=== PATIENT | male | born 1965 | race Caucasian/White ===

== ENCOUNTER → 2023-09-07 07:42 | Outpatient (REF) | payer OTHER, SELFPAY | LOC: DHCBC/DCA 07:42 | PROVIDERS: ATTENDING PHYSICIAN Internal Medicine Cardiovascular Disease; FAMILY PHYSICIAN Family Medicine | DX: R07.9 Chest pain, unspecified (principal); I25.10 Atherosclerotic heart disease of native coronary artery without angina pectoris | CPT/HCPCS: 78452; 93017; A9500 ==

== ENCOUNTER 2025-05-03 12:17 | Emergency (ER) | payer OTHER, SELFPAY ==
[2025-05-03 12:29] VITALS: BP 169/90
[2025-05-03 13:05] LABS: Hematocrit 44.0 % (39.0-52.0); Hemoglobin 14.6 g/dL (13.0-18.0); Mean Corp Hgb Conc. 33.2 g/dL (33.0-37.0); Mean Corpuscular Volume 93.8 fL (80.0-94.0); Nucleated Red Blood Cells % 0 % (-); Platelet Count 314 10^3/uL (130-400); Red Cell Dist. Width 14.2 % (11.5-14.5)
[2025-05-03 13:17] LABS: ALT (SGPT) 30 U/L (0-50); AST (SGOT) 23 U/L (17-59); Albumin 4.7 g/dl (3.5-5.0); Alkaline Phosphatase 58 U/L (38-126); Blood Urea Nitrogen 15 mg/dl (9-20); Calcium 9.7 mg/dl (8.4-10.2); Carbon Dioxide 27 mmol/L (22-30); Chloride 105 mmol/L (98-107); Glucose 125 mg/dl (70-99); Potassium 4.2 mmol/L (3.5-5.1); Sodium 138 mmol/L (135-145); Total Protein 8.1 g/dl (6.3-8.2); eGFR > 60.00
[2025-05-03 13:28] LABS: Troponin I 0.025 ng/ml
[2025-05-03 16:02] VITALS: BP 145/72
[2025-05-03 16:03] VITALS: BMI 38.0
[2025-05-03 16:45] LABS: Troponin I 0.025 ng/ml
[2025-05-03 17:18] VITALS: BP 153/85
--- NOTE | 2025-05-03 17:20 | EDRN ---
Patient updated on blood work and plan to be discharged home.
--- NOTE | 2025-05-03 17:23 | ED.GENMED ---
History of Present Illness
General
Chief Complaint: Chest Pain
Time Seen by Provider: 05/03/25 16:04
History of Present Illness
History of Present Illness:
59-year-old male with history of hypertension and CAD presenting to the emergency department for chest tightness. Patient reports symptoms for about 4 days. Pain has been intermittent. Denies exertional component. Does note that he is under a
lot of stress currently. Denies any radiation of pain. Patient follows with Dr. Elias from cardiology. He went to his primary care doctor today who recommended that he come to the hospital. Denies cough or difficulty breathing. Denies abdominal
pain or GI symptoms. Denies additional acute medical complaint
Past History
Past History
ED Past Medical History: Asthma, CAD, GERD, HTN, Hypercholesterolemia, NIDDM, [place] and Other (Back pain, Sleep apnea, )
ED Past Surgical History: Appendectomy, Cardiac, Orthopedic and Other (Discectomy Sinus surgery)
Social History
Tobacco: Former smoker
Alcohol: Occasional
Drug: None
Personal:
Living: with family
Employment: Employed
Family History
Family History: Hypertension; Negative Early CAD or CAD
Phy Exam
Physical Exam
Physical Exam:
General: Well-appearing, no clinical signs of dehydration, nontoxic and in no acute distress
HEENT: protecting airway
Neck: appears supple
CV: Normal heart rate, regular rhythm
Resp: No accessory muscle use, no increased work of breathing, lungs clear to auscultation bilaterally
Abd: Soft and non-distended, no tenderness to palpation
Extremities: No deformities, no swelling
Neuro: alert, no focal neurologic deficit
: deferred
Rectal: deferred
Psych: Normal affect
Skin: Intact
Scores
Heart Score for Chest Pain Patients
STEMI patient?: No
History: Slightly or Non-Suspicious
ECG: Normal
Age: >45 - <65 years
Risk Factors: >/= 3 Risk Factors or History of CAD
Troponin: </= Normal Limit
Heart Score for Chest Pain Patients: 3
Heart Score Risk: 2.5% MACE over next 6 weeks
Course
Orders/Labs/Results
Orders:
Orders
05/03/25 12:17
Electrocardiogram (*1) Urgent
Reason for Study: Chest Pain
Cardiac Monitoring- Treatment ONCE
EKG- Treatment ONCE
IV Insert/Care/Rem.- Treatment PRN
O2 Therapy [RESP] Urgent
Titrate/Wean O2 to maintain O2 sat greater than (%): 90
Special Instructions: Maintain sats >/=90%
Pulse Ox/spot Check [RESP] Urgent
Quantity: 1
Special Instructions: ON ROOM AIR
05/03/25 12:38
Complete Blood Count/With Diff Urgent
Comprehensive Metabolic Panel Urgent
Troponin I Urgent
05/03/25 15:52
Electrocardiogram (*1) Urgent
Reason for Study: Chest Pain
EKG- Treatment ONCE
05/03/25 16:10
Troponin I Urgent
CR Chest - 2 Views Urgent
Comment:
Reason For Exam: chest pain
Abnormal Lab Results
05/03/25
12:38
WBC 11.4 H 10^3/uL
(4.8-10.8)
RBC 4.69 L 10^6/uL
(4.70-6.10)
MCH 31.1 H pg
(27.0-31.0)
MPV 10.6 H fL
(7.4-10.4)
Abs Immat Gran (auto) 0.1 H 10^3/uL
(0-0.05)
Absolute Neuts (auto) 7.3 H 10^3/uL
(1.4-6.5)
Absolute Monos (auto) 0.9 H 10^3/uL
(0.1-0.6)
Creatinine 0.6 L mg/dL
(0.7-1.3)
Glucose 125 H mg/dl
(70-99)
05/03/25 12:38
05/03/25 12:38
Vital Signs
Initial and Last Documented VS:
Initial Vital Signs
Temp Pulse Resp BP Pulse Ox
98.2 F 55 16 169/90 98
05/03/25 12:29 05/03/25 12:29 05/03/25 12:29 05/03/25 12:29 05/03/25 12:29
Last Documented Vital Signs
Temp Pulse Resp BP Pulse Ox
98.2 F 54 17 145/72 96
05/03/25 12:29 05/03/25 16:15 05/03/25 16:15 05/03/25 16:02 05/03/25 16:15
MDM/Problems Addressed
MDM/Problems Addressed:
59-year-old male with history of hypertension and CAD presenting to the emergency department for 4 days of chest tightness. Vital signs initially significant for hypertension, however improved without intervention.
On exam patient resting comfortably, no acute distress. EKG obtained in patient's arrival, nonischemic. Patient however with known cardiac risk factors. On review of EMR, patient had a catheterization in 2020 which showed nonobstructive coronary
artery disease. Lower suspicion for ACS, however plan for laboratory analysis including troponin. Patient also had a stress test that in August 2023, unremarkable. Will also obtain chest x-ray imaging to ensure no signs of infiltrate, volume
overload, pneumothorax.
17:30 - Patient with 2 normal troponins. Repeat EKG is unchanged. At this time patient is low risk by heart score. Feel stable for discharge, however recommending interval follow-up with cardiology. Communicated to patient verbalized
understanding
*Pulse Oximetry
SaO2: 96
Oxygen Mode of Delivery: Room air
Patient hypoxic: no
*EKG
Interpreted by ED Provider?: Yes
EKG Intrepretation Date: 05/03/25
EKG Intrepretation Time: 17:27
Interpretation: normal
Comparison EKG: no changes
Heart Rate: 48
Rate: bradycardiac
Rhythm: sinus
[place]: normal axis
Interval: normal interval
QRS Pattern: normal QRS
Ischemia: no ischemia
*Critical Care Note
Total Time (30-74mins, 75-104mins- exclusive of procedures): Not Applicable
ED Attending Note
-
Portions of this chart may have been created with voice recognition software.� Occasional wrong word or��sound alike� substitutions may have occurred due to the inherent limitations of voice recognition software.
Discharge Plan
Departure
Patient with high blood pressure during this ER visit?: Yes
Condition: Good
Discharge Problem:
Chest tightness
Instructions: Chest Pain DCA Follow Up
Prescriptions:
No Action
omeprazole magnesium [Prilosec OTC] 20 MG tablet,delayed release (DR/EC)
40 mg PO DAILY PRN (Reason: heartburn)
amlodipine 2.5 MG tablet
2.5 mg PO HS
aspirin [Adult Aspirin Regimen] 81 MG tablet,delayed release (DR/EC)
81 mg PO DAILY
carvedilol 3.125 MG tablet
3.125 mg PO BID
zaleplon [Sonata] 10 MG capsule
10 mg PO HS PRN (Reason: insomnia)
rosuvastatin 10 MG tablet
10 mg PO QPM
eszopiclone [Lunesta] 3 MG tablet
3 mg PO HS
melatonin 3 MG capsule
10 mg PO HS
ibuprofen 600 MG tablet
600 mg PO BID
fluticasone propionate 1 SPRAY spray,suspension
2 spray intranasal HS
guaifenesin [Mucinex] 1,200 MG tablet extended release 12hr
1,200 mg PO BID
[id number]-hfm-htvnd-[id number]-broichl-vkbucc [Centrum Silver Men] 1 EACH tablet
1 ea PO DAILY
cetirizine 10 MG tablet
10 mg PO DAILY
diazepam [Valium] 2 mg tablet
2 mg PO TID PRN (Reason: muscle spasm) Qty: 10 0RF
tuywouutso-igsiddwshrdoy-xtit [Fioricet] 50-300-40 mg capsule
1 cap PO Q8H PRN (Reason: pain) Qty: 15 0RF
Referrals:
Armaan Elias MD [Family Provider, Family Practice]
Activity Restrictions/Additional Instructions:
You were seen in the emergency department for chest tightness
You were found to have reassuring laboratory analysis, EKG, chest x-ray. 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
Please follow-up closely with your primary care physician.
Return to the emergency department for any worsening of your symptoms, or any development of chest pain, difficulty breathing, abdominal pain with persistent vomiting and inability to tolerate food or liquid by mouth (concern for dehydration),
weakness, headache or confusion, fever greater than 100.4, or any additional symptoms that are concerning to you.
Thank you for choosing [facility].
Interventions
Interventions:
*Risk Screen - Suicide Last Done: 05/03/25 12:20
*General Assessment Last Done: 05/03/25 16:03
*Neglect/Abuse Screening Last Done: 05/03/25 12:20
*ED- Fall Risk Assessment Last Done: 05/03/25 16:03
*ED COVID-19 Vaccine History Last Done: 05/03/25 16:03
*ED Influenza Vaccine History Last Done: 05/03/25 16:03
ED- Cardiac Assessment Last Done: 05/03/25 16:40
Discharge Date and Time
Print Language: BELGIAN
== END 2025-05-03 17:49 | disposition home or self-care (01) ==
LOC: EMR 12:17
PROVIDERS: Emergency Medicine; EMERGENCY PHYSICIAN Student in an Organized Health Care Education/Training Program; FAMILY PHYSICIAN Family Medicine
DX: R07.89 Other chest pain (principal); I10 Essential (primary) hypertension; J45.909 Unspecified asthma, uncomplicated; I25.10 Atherosclerotic heart disease of native coronary artery without angina pectoris; K21.9 Gastro-esophageal reflux disease without esophagitis; E78.00 Pure hypercholesterolemia, unspecified; E11.9 Type 2 diabetes mellitus without complications; G47.30 Sleep apnea, unspecified; Z82.49 Family history of ischemic heart disease and other diseases of the circulatory system; Z87.891 Personal history of nicotine dependence; Z90.49 Acquired absence of other specified parts of digestive tract
CPT/HCPCS: 99283; 71046; 80053; 84484; 85025; 93005